=== PATIENT | female | born 1980 | race Caucasian/White ===

== ENCOUNTER 2017-02-12 19:57 | Emergency (ER) | payer MEDICAID ==
[2017-02-12 21:00] LABS: BASOPHILS 0.2 % (0-2); HEMOGLOBIN 13.9 g/dL (12-16); IMMATURE GRANULOCYTES 0.3 % (0-5); LYMPHOCYTES 26.4 % (15-50); MCH 30.4 pg (26.0-34.0); MCHC 33.9 g/dL (31.0-37.0); MCV 89.7 fL (80.0-100.0); MEAN PLATELET VOLUME 9.2 fL (7.4-10.4); MONOCYTES 6.4 % (2-11); NEUTROPHILS 65.7 % (40-80); PLATELET COUNT 219 10x3/uL (130-400); RBC 4.57 10x6/uL (4.00-5.40); RDW 12.2 % (11.5-14.5); WBC 5.8 10x3/uL (4.8-10.8)
[2017-02-12 21:29] LABS: ALBUMIN 3.4 g/dL (3.4-5.0); ALKALINE PHOSPHATASE 80 U/L (46-116); ALT (SGPT) 24 U/L (10-68); AMYLASE - SERUM 35 U/L (25-115); BILIRUBIN - TOTAL 0.28 mg/dL (0.2-1.3); CALC OSMOLALITY 278 mosm/kg (275-300); CALCIUM 8.9 mg/dL (8.5-10.1); CARBON DIOXIDE 27.2 mmol/L (21.0-32.0); CHLORIDE - SERUM 105 mmol/L (98-107); CREATININE - SERUM 0.8 mg/dL (0.6-1.3); GLUCOSE 89 mg/dL (74-106); LIPASE 139 U/L (73-393); POTASSIUM - SERUM 3.5 mmol/L (3.5-5.1); PROTEIN - SERUM 7.4 g/dL (6.4-8.2); SODIUM 141 mmol/L (136-145); UREA NITROGEN 9 mg/dL (7-18); eGFR NON AFRICAN AMERICAN 86 mL/min (90-120)
[2017-02-12 22:31] LABS: APPEARANCE CLEAR (CLEAR); BILIRUBIN NEGATIVE (NEGATIVE); COLOR YELLOW (YELLOW); GLUCOSE NEGATIVE (NEGATIVE); KETONE NEGATIVE (NEGATIVE); LEUKOCYTE ESTERASE NEGATIVE (NEGATIVE); NITRITE POSITIVE (NEGATIVE); PROTEIN NEGATIVE (NEGATIVE); SPECIFIC GRAVITY 1.015 (1.005-1.020); UROBILINOGEN NORMAL (NORMAL)
[2017-02-12 22:35] LABS: EPITHELIAL CELLS 0-5 /hpf (0-5); WHITE CELLS - URINE 0-5 /hpf (0-5)
[2017-02-12 22:36] LABS: BACTERIA MANY /hpf (NONE SEEN)
== END 2017-02-12 23:10 | disposition home or self-care (01) ==
LOC: D.ER 19:57
PROVIDERS: Emergency Medicine
DX: K80.50 Calculus of bile duct without cholangitis or cholecystitis without obstruction (principal); K80.20 Calculus of gallbladder without cholecystitis without obstruction; F17.200 Nicotine dependence, unspecified, uncomplicated

== ENCOUNTER → 2019-01-31 08:05 | Day surgery (SDC) | payer MEDICAID ==
[2019-01-29 16:37] LABS: HEMATOCRIT 40.6 % (36.0-48.0); MCH 31.1 pg (26.0-34.0); MCHC 34.5 g/dL (31.0-37.0); MCV 90.2 fL (80.0-100.0); MEAN PLATELET VOLUME 9.5 fL (7.4-10.4); RBC 4.5 10x6/uL (4.00-5.40); RDW 12.2 % (11.5-14.5); WBC 10.8 10x3/uL (4.8-10.8)
[~2019-01-31] VITALS: Ht 157.5 cm; Wt 83.0 kg
[~2019-01-31 08:05] MED LIST: HYDROCODON-ACE1 EA10 PO; MINOCIN50 MG PO; OMEPRAZOLE40 MG PO; VITAMIN B-1250 MCG PO
[2019-01-31 09:20] VITALS: BP 119/51; Ht 157.5 cm; Wt 83.0 kg
--- NOTE | 2019-01-31 16:09 | OP ---
PATIENT NAME: MABEL CHIU MEDICAL RECORD: [id number] :82 LOCATION:D.OPS ADMISSION DATE: SURGEON: RAJESH CORRAL MD DATE OF OPERATION: 01/31/2019 PREOPERATIVE DIAGNOSES: 1. Gallstones. 2. Tobacco dependence syndrome. POSTOPERATIVE DIAGNOSES: 1. Gallstones. 2. Tobacco dependence syndrome. PROCEDURE: Laparoscopic cholecystectomy. SURGEON: Rajesh Corral MD REPORT OF PROCEDURE: The patient's abdomen was prepped and draped in sterile fashion. A cutdown was made on the superior aspect of the umbilicus, 0 Vicryls were placed on the fascia bilaterally and the fascia was incised with 15-blade. I then bluntly entered the peritoneal cavity and placed a 12-mm Lm port. Under direct visualization, a 5-mm trocar was placed in the epigastrium and two more 5-mm trocars were placed in the right subcostal region. The gallbladder was grasped and elevated. There were some fatty adhesions present and there was some acute inflammatory changes noted to the gallbladder wall. The cystic artery and cystic duct were dissected free and these were clipped proximally and distally and ligated in standard fashion. The gallbladder was taken off the liver bed using electrocautery and placed into the right upper quadrant. Any bleeding from the liver bed was then treated with electrocautery. We irrigated out the right upper quadrant and assured there was no sign of any bleeding or bile leakage. At this point, the ports and insufflation were then removed and the gallbladder was taken out through the umbilicus. The umbilical fascia was closed with interrupted 0 Vicryls times 3. The wounds were irrigated out with normal saline and infused with 10 mL of 0.25% Marcaine with epinephrine. The skin incisions were closed with subcutaneous 5-0 Monocryl and dressed appropriately. COMPLICATIONS: None. CONDITION: Stable. ANESTHESIA: General endotracheal and local. BLOOD LOSS: Minimal. TRANSINT:[id number] Voice Confirmation ID: [id number] DOCUMENT ID: [id number] CC: Linn Medina APN OPERATIVE REPORT [id number] MAURICIO CHIUCIA Vicenta RAJESH CORRAL MD at 1605 CC: [id number] DICTATION DATE: 01/31/19 1115 CONCRETE HANDLER: 01/31/19 1152 PRE [facility] [address] [place], [facility]
== END | disposition home or self-care (01) ==
LOC: D.OPS 08:05 → D.PAN 10:30
PROVIDERS: Anesthesiology; ATTEND Surgery
DX: K80.20 Calculus of gallbladder without cholecystitis without obstruction (principal); F17.200 Nicotine dependence, unspecified, uncomplicated; Z01.812 Encounter for preprocedural laboratory examination